=== PATIENT | female | born 1990 | race American Indian/Alaskan Native ===

== ENCOUNTER 2017-04-17 00:29 | Outpatient (CLI) | payer MEDICAID ==
[2017-04-17] MEDS ORDERED: NITRATEST PAPER MC ONE (00:43)
[2017-04-17 00:57] VITALS: BP 109/63
--- NOTE | 2017-04-17 07:54 | Ultrasound Report ---
ULTRASOUND OB LIMITED History: Leakage of fluids for 2 weeks, rupture of membranes Technique: Transabdominal ultrasound with Doppler interrogation. Gestation: Single Position: Cephalic Amniotic Fluid: Normal CARLOS = 9.8 cm Heart Rate: 159 BPM
== END 2017-04-17 02:48 | disposition home or self-care (01) ==
LOC: TRG 00:29
PROVIDERS: ATTEND Obstetrics & Gynecology
DX: O47.1 False labor at or after 37 completed weeks of gestation (principal); Z3A.38 38 weeks gestation of pregnancy
CPT/HCPCS: 59025; 76815

== ENCOUNTER 2019-01-09 22:11 | Emergency (ER) | payer MEDICAID, OTHER ==
[2019-01-09 22:21] VITALS: BP 126/92
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
== END 2019-01-10 01:30 | disposition home or self-care (01) ==
LOC: ED 22:11
DX: S16.1XXA Strain of muscle, fascia and tendon at neck level, initial encounter (principal); S39.012A Strain of muscle, fascia and tendon of lower back, initial encounter; I10 Essential (primary) hypertension; J45.909 Unspecified asthma, uncomplicated; Z91.040 Latex allergy status; Z88.5 Allergy status to narcotic agent; Z91.018 Allergy to other foods; V59.3XXA Occupant (driver) (passenger) of pick-up truck or van injured in unspecified nontraffic accident, initial encounter; Y93.89 Activity, other specified; Y92.488 Other paved roadways as the place of occurrence of the external cause; Y99.8 Other external cause status
CPT/HCPCS: 99282

== ENCOUNTER 2020-11-14 00:18 | Emergency (ER) | payer MEDICAID ==
[2020-11-14] MEDS ORDERED: diphenhydrAMINE 50 MG/ML VIAL IV ONE (00:39)
[2020-11-14] MEDS ORDERED: BUTALB/ACETAMINOPHEN/CAFFEINE TAB PO ONE (00:39)
[2020-11-14] MEDS ORDERED: METOCLOPRAMIDE 10 MG/2 ML INJ IV ONE (00:39)
--- NOTE | 2020-11-14 01:22 | Cat Scan Report ---
CT head/brain wo con INDICATION / CLINICAL INFORMATION: Patient complains of a severe headache. TECHNIQUE: Axial CT imaging of the brain was obtained without contrast. Coronal and sagittal reformatted imaging obtained and reviewed. All CT scans at this location are performed using CT dose reduction for ALAR A by means of automated exposure control. COMPARISON: Prior head CT 03/03/2020 FINDINGS: No intracranial hemorrhage, mass, or midline shift is noted. No extra-axial fluid collection or sugge stion of acute territorial infarction. Ventricular system and basilar cisterns are unremarkable. Visualized paranasal sinuses and mastoid air cells are well aerated and clear. No calvarial abnormali ty. No soft tissue abnormality. IMPRESSION: 1. Negative noncontrasted head CT scan. Signer Name: Guerda Brown MD Signed: 11/14/2020 1:17 AM Workstation Name: [id number]
--- NOTE | 2020-11-14 02:17 | Emergency Department Report ---
ED Headache HPI - General Chief Complaint: Headache Stated Complaint: HEADACHE RT SIDE WEAKNESS - History of Present Illness Initial Comments: Patient is a 30-year-old -Burkin[place] female with a history of anxiety, hypertension, seizures and anemia who presents to the ED with complaint of acute onset persistent right temporal headache severely for the last 24 hours, worse in the last 8 hours. Patient states that she has been taking [id number] medication with no relief. Patient also states that she recently was evaluated by her primary care physician who told her that her EKG looked abnormal and was therefore referred to a contact printer dry film for further evaluation. Patient states that the scheduled appointment with your contact printer dry film is pending. Patient denies dizziness, syncope, chest pain, nausea, vomiting, change in vision, neck pain, syncope, seizures, back pain, abdominal pain, diarrhea, shortness of breath or nasal and sinus congestion, fever and chills. Timing/Duration: 24 hours, constant Quality: severe Head Injury Location: temporal (right) Recent Head Trauma: no recent headache/trauma Modifying Factors: improves with: medication Associated Symptoms: denies symptoms. denies: confusion, fatigue, facial pain, fever/chills, flushing, loss of consciousness, nausea/vomiting, nasal congestion, nasal drainage, numbness in legs/feet, rash, seizures, sinus infection, stiff neck, weakness Allergies/Adverse Reactions: Allergies latex Allergy (Verified 03/03/20 02:47) Itching morphine Allergy (Verified 03/03/20 02:47) Angioedema grapes Allergy (Uncoded 03/03/20 02:47) Swelling Home Medications: Ambulatory Orders Beclomethasone Dipropionate [Qvar 80MCG] 2 inhalation IH BID 05/11/15 Cholecalciferol Vit D3 [Vitamin D3 1,000 UNIT TAB] 1 tab PO QDAY 04/17/17 Ferrous Sulfate [Feosol 325 MG tab] 325 mg PO QDAY 04/17/17 Garlic 1,000 mg PO QDAY 04/17/17 Butalb/Acetamin/Caff 50-325-40 [Fioricet 50-325-40] 1 tab PO Q6HR PRN #30 tab 04/24/17 Cyclobenzaprine HCl [Flexeril 5 MG TAB] 5 mg PO QHS PRN #7 tablet 01/10/19 Naproxen 250 mg PO Q6HR PRN #20 tablet 01/10/19 Naproxen [EC-Naproxen] 375 mg PO BID PRN #20 tablet. 03/03/20 methOCARBAMOL [Robaxin TAB] 500 mg PO BID PRN #12 tab 03/03/20 traMADoL [Ultram] 50 mg PO Q6HR PRN #12 tablet 04/25/20 Butalb/Acetamin/Caff 50-325-40 [Fioricet 50-325-40] 1 tab PO Q6HR PRN #12 tab 11/14/20 Naproxen 500 mg PO Q12H PRN #24 tablet 11/14/20 Ondansetron [Zofran Odt] 4 mg PO Q6HR PRN #15 tab.rapdis 11/14/20 hydrOXYzine PAMOATE [Vistaril] 25 mg PO Q6HR PRN #30 capsule 11/14/20 ED Review of Systems ROS: Stated complaint: HEADACHE RT SIDE WEAKNESS Other details as noted in HPI Constitutional: denies: chills, fever Eyes: denies: eye pain, eye discharge, vision change ENT: denies: ear pain, throat pain Respiratory: denies: cough, shortness of breath, wheezing Cardiovascular: denies: chest pain, palpitations Endocrine: no symptoms reported Gastrointestinal: denies: abdominal pain, nausea, diarrhea Genitourinary: denies: urgency, dysuria, discharge Musculoskeletal: denies: back pain, joint swelling, arthralgia Skin: denies: rash, lesions Neurological: headache. denies: weakness, paresthesias Psychiatric: anxiety. denies: depression Hematological/Lymphatic: denies: easy bleeding, easy bruising ED Past Medical Hx - Past Medical History Previous Medical History?: Yes Hx Hypertension: Yes Hx CVA: No Hx Congestive Heart Failure: No Hx Diabetes: No Hx Deep Vein Thrombosis: No Hx Renal Disease: No Hx Sickle Cell Disease: No Hx Headaches / Migraines: No Hx Seizures: Yes Hx Psychiatric Treatment: Yes (Anxiety) Hx Asthma: Yes Hx COPD: No Hx HIV: No Additional medical history: ANEMIA. "Prob with adrenal gland" - Surgical History Past Surgical History?: No - Social History Smoking Status: Never Smoker Substance Use Type: None - Medications Home Medications: Home Medications Medication Instructions Recorded Confirmed Last Taken Type Beclomethasone Dipropionate [Qvar 2 inhalation IH BID 05/11/15 04/23/17 04/16/17 History 80MCG] Cholecalciferol Vit D3 [Vitamin D3 1 tab PO QDAY 04/17/17 04/23/17 04/16/17 Hi story 1,000 UNIT TAB] Ferrous Sulfate [Feosol 325 MG tab] 325 mg PO QDAY 04/17/17 04/23/17 04/16/17 History Garlic 1,000 mg PO QDAY 04/17/17 04/23/17 04/16/17 History Butalb/Acetamin/Caff 50-325-40 1 tab PO Q6HR PRN #30 tab 04/24/17 Unknown Rx [Fioricet 50-325-40] Cyclobenzaprine HCl [Flexeril 5 MG 5 mg PO QHS PRN #7 tablet 01/10/19 Unknown Rx TAB] Naproxen 250 mg PO Q6HR PRN #20 tablet 01/10/19 Unknown Rx Naproxen [EC-Naproxen] 375 mg PO BID PRN #20 tablet.dr 03/03/20 Unknown Rx methOCARBAMOL [Robaxin TAB] 500 mg PO BID PRN #12 tab 03/03/20 Unknown Rx traMADoL [Ultram] 50 mg PO Q6HR PRN #12 tablet 04/25/20 Unknown Rx Butalb/Acetamin/Caff 50-325-40 1 tab PO Q6HR PRN #12 tab 11/14/20 Unknown Rx [Fioricet 50-325-40] Naproxen 500 mg PO Q12H PRN #24 tablet 11/14/20 Unknown Rx Ondansetron [Zofran Odt] 4 mg PO Q6HR PRN #15 tab.rapdis 11/14/20 Unknown Rx hydrOXYzine PAMOATE [Vistaril] 25 mg PO Q6HR PRN #30 capsule 11/14/20 Unknown Rx ED Physical Exam - General Limitations: No Limitations General appearance: alert, in no apparent distress - Head Head exam: Present: atraumatic, normocephalic, normal inspection - Eye Eye exam: Present: normal appearance, PERRL, EOMI Pupils: Present: normal accommodation - ENT ENT exam: Present: normal exam, normal orophraynx, mucous membranes moist, TM's normal bilaterally, normal external ear exam - Neck Neck exam: Present: normal inspection, full ROM - Respiratory Respiratory exam: Present: normal lung sounds bilaterally. Absent: respiratory distress, wheezes, rales, rhonchi, stridor, chest wall tenderness, accessory muscle use, decreased breath sounds, prolonged expiratory - Cardiovascular Cardiovascular Exam: Present: regular rate, normal rhythm. Absent: systolic murmur, diastolic murmur, rubs, gallop - GI/Abdominal GI/Abdominal exam: Present: soft, normal bowel sounds. Absent: tenderness, guarding, rebound, hyperactive bowel sounds, hypoactive bowel sounds, organomegaly, mass - Extremities Exam Extremities exam: Present: normal inspection, full ROM, normal capillary refill - Back Exam Back exam: Present: normal inspection, full ROM. Absent: tenderness, CVA tenderness (R), CVA tenderness (L), muscle spasm, paraspinal tenderness, vertebral tenderness - Neurological Exam Neurological exam: Present: alert, oriented X3, CN II-XII intact, normal gait, reflexes normal - Psychiatric Psychiatric exam: Present: normal affect, normal mood, anxious - Skin Skin exam: Present: warm, dry, intact, normal color. Absent: rash ED Course Vital Signs 11/14/20 11/14/20 00:36 02:52 Temperature 98.3 F Pulse Rate 97 H 90 Respiratory 16 16 Rate Blood Pressure 121/86 Blood Pressure 129/82 [Right] O2 Sat by Pulse 100 100 Oximetry ED Medical Decision Making - Radiology Data Radiology results: report reviewed, image [place] [address] Cat Scan Report Signed Patient: MUSA LENNON MR#: [id number] : 1990 Acct:[id number] Age/Sex: 30 / F ADM Date: 11/14/20 Loc: ED Attending Dr: Ordering Physician: MYRTLE PATRICIO Date of Service: 11/14/20 Procedure(s): CT head/brain wo con Accession Number(s): [id number] cc: MYRTLE PATRICIO CT head/brain wo con INDICATION / CLINICAL INFORMATION: Patient complains of a severe headache. TECHNIQUE: Axial CT imaging of the brain was obtained without contrast. Coronal and sagittal reformatted imaging obtained and reviewed. All CT scans at this location are performed using CT dose reduction for ALARA by means of automated exposure control. COMPARISON: Prior head CT 03/03/2020 FINDINGS: No intracranial hemorrhage, mass, or midline shift is noted. No extra-axial fluid collection or suggestion of acute territorial infarction. Ventricular system and basilar cisterns are unremarkable. Visualized paranasal sinuses and mastoid air cells are well aerated and clear. No calvarial abnormality. No soft tissue abnormality. IMPRESSION: 1. Negative noncontrasted head CT scan. Signer Name: Guerda Brown MD Signed: 11/14/2020 1:17 AM Workstation Name: [id number] Transcribed By: Dictated By: Guerda Brown MD Electronically Authenticated By: Guerda Brown MD Signed Date/Time: 11/14/20 0117 - Medical Decision Making This is a 30-year-old -[place]kin[place] female with a history of anxiety, hypertension, seizures and anemia who presents to the ED with complaint of acute onset persistent right temporal headache severely for the last 24 hours, worse in the last 8 hours. Patient states that she has been taking [id number] medication with no relief. Patient also states that she recently was evaluated by her primary care physician who told her that her EKG looked abnormal and was therefore referred to a contact printer dry film for further evaluation. Patient states that the scheduled appointment with your contact printer dry film is pending. In the ED, patient is alert and oriented x3 and is not in distress but anxious in triage. Patient was treated for pain in the ED and head CT scan without contrast showed no acute intracranial abnormalities or hemorrhage. On reevaluation, patient's headache resolved with medications. Patient was discharged home on pain medications and advised to follow-up with her primary care physician in 3 to 5 days for reevaluation. Patient advised to return to the ED immediately if sy mptoms get worse. - Differential Diagnosis Tension headache; sinusitis; migraine headache; cluster headache Critical care attestation.: If time is entered above; I have spent that time in minutes in the direct care of this critically ill patient, excluding procedure time. ED Disposition Clinical Impression: Anxiety as acute reaction to exceptional stress Tension type headache, unspecified Qualifiers: Headache chronicity pattern: acute headache Intractability: not intractable Qualified Code(s): G44.209 - Tension-type headache, unspecified, not intractable Disposition: DC-01 TO HOME OR SELFCARE Is pt being admited?: No Does the pt Need Aspirin: No Condition: Stable Instructions: Generalized Anxiety Disorder, Adult, Tension Headache, Adult, [id number] Additional Instructions: The head CT scan without contrast showed no acute intracranial abnormalities or hemorrhage. Therefore take medications with food, drink plenty of fluids and follow-up with your primary care physician in 7 to 10 days for reevaluation. Return to the ED immediately if symptoms get worse. Prescriptions: Butalb/Acetamin/Caff 50-325-40 [Fioricet 50-325-40] 1 tab PO Q6HR PRN #12 tab PRN Reason: Headache Naproxen 500 mg PO Q12H PRN #24 tablet PRN Reason: Pain , Severe (7-10) hydrOXYzine PAMOATE [Vistaril] 25 mg PO Q6HR PRN #30 capsule PRN Reason: Anxiety Ondansetron [Zofran Odt] 4 mg PO Q6HR PRN #15 tab.rapdis PRN Reason: Nausea Referrals: [facility] [Provider Group] - 3-5 Days Forms: Work/School Release Form(ED) Time of Disposition: 02:18 Print Language: NORTH KOREAN
[2020-11-14 02:52] VITALS: BP 129/82
== END 2020-11-14 03:12 | disposition home or self-care (01) ==
LOC: ED 00:18
DX: F41.1 Generalized anxiety disorder (principal); F43.0 Acute stress reaction; G44.209 Tension-type headache, unspecified, not intractable; J45.909 Unspecified asthma, uncomplicated; I10 Essential (primary) hypertension; F41.9 Anxiety disorder, unspecified; D64.9 Anemia, unspecified; Z86.69 Personal history of other diseases of the nervous system and sense organs; Z79.899 Other long term (current) drug therapy; Z91.040 Latex allergy status; Z88.6 Allergy status to analgesic agent
CPT/HCPCS: 70450; 96374; 96375; 99283; J1200; J2765

== ENCOUNTER 2021-05-18 00:26 | Emergency (ER) | payer MEDICAID ==
[2021-05-18 00:46] VITALS: BP 128/87
[2021-05-18 02:22] LABS: Basophils % (Auto) 0.5 % (0.0-1.8); Eosinophils # (Auto) 0.2 K/mm3 (0.0-0.4); Eosinophils % (Auto) 2.2 % (0.0-4.3); Hematocrit 39.7 % (30.3-42.9); Hemoglobin 12.5 gm/dl (10.1-14.3); Lymphocytes # (Auto) 2.1 K/mm3 (1.2-5.4); Lymphocytes % (Auto) 28.6 % (13.4-35.0); Mean Corpuscular HGB Conc 32 % (30-34); Mean Corpuscular Volume 77 fl (79-97); Monocytes # (Auto) 0.7 K/mm3 (0.0-0.8); Monocytes % (Auto) 9.1 % (0.0-7.3); Platelet Count 242 K/mm3 (140-440); Red Blood Count 5.17 M/mm3 (3.65-5.03); Red Cell Distribution Width 13.6 % (13.2-15.2)
--- NOTE | 2021-05-18 02:22 | Ultrasound Report ---
ULTRASOUND OBSTETRIC REASON FOR EXAM: TECHNIQUE: Transabdominal and transvaginal ultrasound was performed to evaluate a first trimester pre gnancy. COMPARISON: Ultrasound from 01/13/2014. FINDINGS: FINDINGS: No IUP is visualized. MATERNAL FINDINGS: Uterus measures 8.7 x 4.0 x 4.6 cm. Endometrial stripe measures 0.5 cm. Cystic structure in the cervi x most likely reflects nabothian cyst. Right ovary measures 3.2 cm. 2 cm thick-walled cystic structure in the right ovary most likely reflec ts a corpus luteum cyst. No abnormal Doppler flow. The left ovary demonstrates a normal sonographic appearance. Cul-de-sac: There is no free fluid. IMPRESSION: No IUP is visualized. Findings are consistent with of unknown location. Findings could refl ect an early intrauterine , occult ectopic , or recent spontaneous . In a h emodynamically stable patient, recommend follow-up with pelvic ultrasound in 7-10 days. Signer Name: Flash Orellana MD Signed: 05/18/2021 2:17 AM Workstation Name: [id number]
[2021-05-18 02:39] LABS: Alanine Aminotransferase 17 units/L (7-56); Albumin 4.6 g/dL (3.9-5); BUN/Creatinine Ratio 11; Blood Urea Nitrogen 9 mg/dL (7-17); Hemolysis Index 7
--- NOTE | 2021-05-18 05:38 | Emergency Department Report ---
ED Abdominal Pain HPI - General Chief Complaint: Abdominal Pain Stated Complaint: 4 OR 5 MTH PREG, NO CARE, SPOTTING Source: patient Mode of arrival: Ambulatory Limitations: No Limitations - History of Present Illness Initial Comments: Patient is a 30-year-old -[place] female who is G5, who presents stating that she is 4 to 5 months and has been having vaginal spotting for the past 2 days., There is no fever, chills, nausea or vomiting. Patient is tolerating p.o. at this time without symptoms. Patient states she is not seen [facility] however she feels as though she is as this is progressed as does her past. Patient states current monthly menses, denies ovarian cyst or fibroids. Symptoms are relieved by nothing tried, symptoms are exacerbated by nothing. - Related Data Home Medications Medication Instructions Recorded Confirmed Last Taken Beclomethasone Dipropionate [Qvar 2 inhalation IH BID 05/11/15 04/23/17 04/16/17 80MCG] Cholecalciferol Vit D3 [Vitamin D3 1 tab PO QDAY 04/17/17 04/23/17 04/16/17 1,000 UNIT TAB] Ferrous Sulfate [Feosol 325 MG tab] 325 mg PO QDAY 04/17/17 04/23/17 04/16/17 Garlic 1,000 mg PO QDAY 04/17/17 04/23/17 04/16/17 Previous Rx's Medication Instructions Recorded Last Taken Type Butalb/Acetamin/Caff 50-325-40 1 tab PO Q6HR PRN #30 tab 04/24/17 Unknown Rx [Fioricet 50-325-40] Cyclobenzaprine HCl [Flexeril 5 MG 5 mg PO QHS PRN #7 tablet 01/10/19 Unknown Rx TAB] Naproxen 250 mg PO Q6HR PRN #20 tablet 01/10/19 Unknown Rx Naproxen [EC-Naproxen] 375 mg PO BID PRN #20 tablet. 03/03/20 Unknown Rx methOCARBAMOL [Robaxin TAB] 500 mg PO BID PRN #12 tab 03/03/20 Unknown Rx traMADoL [Ultram] 50 mg PO Q6HR PRN #12 tablet 04/25/20 Unknown Rx Butalb/Acetamin/Caff 50-325-40 1 tab PO Q6HR PRN #12 tab 11/14/20 Unknown Rx [Fioricet 50-325-40] Naproxen 500 mg PO Q12H PRN #24 tablet 11/14/20 Unknown Rx Ondansetron [Zofran Odt] 4 mg PO Q6HR PRN #15 tab.rapdis 11/14/20 Unknown Rx hydrOXYzine PAMOATE [Vistaril] 25 mg PO Q6HR PRN #30 capsule 11/14/20 Unknown Rx Acetaminophen [Acetaminophen TAB] 650 mg PO Q6HR PRN #30 tablet 05/18/21 Unknown Rx Allergies Allergy/AdvReac Type Severity Reaction Status Date / Time latex Allergy Itching Verified 03/03/20 02:47 morphine Allergy Angioedema Verified 03/03/20 02:47 grapes Allergy Swelling Uncoded 03/03/20 02:47 ED Review of Systems ROS: Stated complaint: 4 OR 5 MTH PREG, NO CARE, SPOTTING Other details as noted in HPI Constitutional: denies: chills, fever Eyes: denies: eye pain, eye discharge, vision change ENT: denies: ear pain, throat pain Respiratory: denies: cough, shortness of breath, wheezing Cardiovascular: denies: chest pain, palpitations Endocrine: no symptoms reported Gastrointestinal: abdominal pain (abdominal cramping denies any administration ). denies: nausea, vomiting, diarrhea, constipation Genitourinary: denies: urgency, dysuria, frequency, hematuria, discharge Musculoskeletal: denies: back pain, joint swelling, arthralgia Skin: denies: rash, lesions Neurological: denies: headache, weakness, paresthesias Psychiatric: denies: anxiety, depression Hematological/Lymphatic: denies: easy bleeding, easy bruising ED Past Medical Hx - Past Medical History Hx Hypertension: Yes Hx CVA: No Hx Congestive Heart Failure: No Hx Diabetes: No Hx Deep Vein Thrombosis: No Hx Renal Disease: No Hx Sickle Cell Disease: No Hx Headaches / Migraines: No Hx Seizures: Yes Hx Psychiatric Treatment: Yes (Anxiety) Hx Asthma: Yes Hx COPD: No Hx HIV: No Additional medical history: ANEMIA. "Prob with adrenal gland" - Social History Smoking Status: Never Smoker Substance Use Type: None - Medications Home Medications: Home Medications Medication Instructions Recorded Confirmed Last Taken Type Beclomethasone Dipropionate [Qvar 2 inhalation IH BID 05/11/15 04/23/17 04/16/17 History 80MCG] Cholecalciferol Vit D3 [Vitamin D3 1 tab PO QDAY 04/17/17 04/23/17 04/16/17 History 1,000 UNIT TAB] Ferrous Sulfate [Feosol 325 MG tab] 325 mg PO QDAY 04/17/17 04/23/17 04/16/17 Hi story Garlic 1,000 mg PO QDAY 04/17/17 04/23/17 04/16/17 History Butalb/Acetamin/Caff 50-325-40 1 tab PO Q6HR PRN #30 tab 04/24/17 Unknown Rx [Fioricet 50-325-40] Cyclobenzaprine HCl [Flexeril 5 MG 5 mg PO QHS PRN #7 tablet 01/10/19 Unknown Rx TAB] Naproxen 250 mg PO Q6HR PRN #20 tablet 01/10/19 Unknown Rx Naproxen [EC-Naproxen] 375 mg PO BID PRN #20 tablet.dr 03/03/20 Unknown Rx methOCARBAMOL [Robaxin TAB] 500 mg PO BID PRN #12 tab 03/03/20 Unknown Rx traMADoL [Ultram] 50 mg PO Q6HR PRN #12 tablet 04/25/20 Unknown Rx Butalb/Acetamin/Caff 50-325-40 1 tab PO Q6HR PRN #12 tab 11/14/20 Unknown Rx [Fioricet 50-325-40] Naproxen 500 mg PO Q12H PRN #24 tablet 11/14/20 Unknown Rx Ondansetron [Zofran Odt] 4 mg PO Q6HR PRN #15 tab.rapdis 11/14/20 Unknown Rx hydrOXYzine PAMOATE [Vistaril] 25 mg PO Q6HR PRN #30 capsule 11/14/20 Unknown Rx Acetaminophen [Acetaminophen TAB] 650 mg PO Q6HR PRN #30 tablet 05/18/21 Unknown Rx ED Physical Exam - General Limitations: No Limitations General appearance: alert, in no apparent distress - Head Head exam: Present: atraumatic, normocephalic - Eye Eye exam: Present: normal appearance, EOMI Pupils: Present: normal accommodation - ENT ENT exam: Present: mucous membranes moist - Neck Neck exam: Present: normal inspection, full ROM. Absent: tenderness (Exam is) - Respiratory Respiratory exam: Present: normal lung sounds bilaterally. Absent: respiratory distress, wheezes - Cardiovascular Cardiovascular Exam: Present: regular rate, normal rhythm, normal heart sounds. Absent: systolic murmur, diastolic murmur, rubs, gallop - GI/Abdominal GI/Abdominal exam: Present: soft, normal bowel sounds. Absent: distended, tenderness, guarding, rebound, rigid - Rectal Rectal exam: Present: deferred - Extremities Exam Extremities exam: Present: normal inspection, full ROM. Absent: tenderness, pedal edema - Back Exam Back exam: Present: normal inspection, full ROM. Absent: tenderness, CVA tenderness (R), CVA tenderness (L) - Neurological Exam Neurological exam: Present: alert, oriented X3, CN II-XII intact, normal gait, reflexes normal - Psychiatric Psychiatric exam: Present: normal affect, normal mood - Skin Skin exam: Present: warm, dry, intact, normal color. Absent: rash ED Course Vital Signs 05/18/21 00:39 Temperature 98.4 F Pulse Rate 98 H Respiratory 16 Rate Blood Pressure 128/87 O2 Sat by Pulse 100 Oximetry ED Medical Decision Making - Lab Data Result diagrams: 05/18/21 01:57 05/18/21 01:57 Labs 05/18/21 05/18/21 01:57 01:57 WBC 7.3 RBC 5.17 H Hgb 12.5 Hct 39.7 MCV 77 L MCH 24 L MCHC 32 RDW 13.6 Plt Count 242 Lymph % (Auto) 28.6 [place] % (Auto) 9.1 H Eos % (Auto) 2.2 Baso % (Auto) 0.5 Lymph # (Auto) 2.1 [place] # (Auto) 0.7 Eos # (Auto) 0.2 Baso # (Auto) 0.0 Seg Neutrophils % 59.6 Seg Neutrophils # 4.3 Sodium 139 Potassium 3.8 Chloride 100.8 Carbon Dioxide 30 Anion Gap 12 BUN 9 Creatinine 0.8 Estimated GFR > 60 BUN/Creatinine Ratio 11 Glucose 139 H Calcium 10.0 Total Bilirubin 0.30 AST 21 ALT 17 Alkaline Phosphatase 64 Total Protein 7.2 Albumin 4.6 Albumin/Globulin Ratio 1.8 - Radiology Data Radiology results: report reviewed, image reviewed Ordering Physician: ALINA WHYTE MD Date of Service: 05/18/21 Procedure(s): US transvaginal Accession Number(s): [id number] cc: ED DOC, MD ULTRASOUND OBSTETRIC REASON FOR EXAM: TECHNIQUE: Transabdominal and transvaginal ultrasound was performed to evaluate a first trimester . COMPARISON: Ultrasound from 01/13/2014. FINDINGS: FINDINGS: No IUP is visualized. MATERNAL FINDINGS: Uterus measures 8.7 x 4.0 x 4.6 cm. Endometrial stripe measures 0.5 cm. Cystic structure in the cervix most likely reflects nabothian cyst. Right ovary measures 3.2 cm. 2 cm thick-walled cystic structure in the right ovary most likely reflects a corpus luteum cyst. No abnormal Doppler flow. The left ovary demonstrates a normal sonographic appearance. Cul-de-sac: There is no free fluid. IMPRESSION: No IUP is visualized. Findings are consistent with of unknown location. Findings could reflect an early intrauterine , occult ectopic , or recent spontaneous . In a hemodynamically stable patient, recommend follow-up with pelvic ultrasound in 7-10 days. Signer Name: Skinny Love MD Signed: 05/18/2021 2:17 AM Workstation Name: [id number] Transcribed By: IKE Dictated By: SKINNY LOVE MD Electronically Authenticated By: SKINNY LOVE MD Signed Date/Time: 05/18/21216 DD/ 9 TD/TT: - Medical Decision Making US OB: No IUP is visualized. Findings are consistent with of unknown location. Findings could reflect an early intrauterine , occult ectopic , or recent spontaneous . In a hemodynamically stable patient, recommend follow-up with pelvic ultrasound in 7-10 days. , Discussed findings with patient plan DC to home, follow-up with [facility] today or tomorrow. Patient verbalized agreement and understanding with discharge plan. Patient DC'd home in stable condition at this time Critical care attestation.: If time is entered above; I have spent that time in minutes in the direct care of this critically ill patient, excluding procedure time. ED Disposition Clinical Impression: Abdominal cramping Disposition: DC-01 TO HOME OR SELFCARE Is pt being admited?: No Does the pt Need Aspirin: No Condition: Stable Instructions: Abdominal Pain (ED), Abdominal Pain, Adult Additional Instructions: follow up OBGYN in 1-2 days pelvic rest, take medicatons as prescribed. return to emergency if symptms worsen. Prescriptions: Acetaminophen [Acetaminophen TAB] 650 mg PO Q6HR PRN #30 tablet PRN Reason: Pain Referrals: [facility] [Provider Group] - 3-5 Days Forms: Work/School Release Form(ED) Time of Disposition: 05:56
== END 2021-05-18 06:20 | disposition home or self-care (01) ==
LOC: ED 00:26
DX: O26.891 Other specified pregnancy related conditions, first trimester (principal); R10.9 Unspecified abdominal pain; I10 Essential (primary) hypertension; F41.9 Anxiety disorder, unspecified; J45.909 Unspecified asthma, uncomplicated; Z3A.01 Less than 8 weeks gestation of pregnancy; Z79.899 Other long term (current) drug therapy; Z88.8 Allergy status to other drugs, medicaments and biological substances
CPT/HCPCS: 36415; 76830; 80053; 85025